=== PATIENT | female | born 1985 | race African-American/Black ===

== ENCOUNTER 2017-04-08 14:51 | Emergency (ER) | payer OTHER ==
[~2017-04-08] VITALS: Ht 167.6 cm; Wt 89.8 kg
[~2017-04-08 14:51] MED LIST: ACETAZOLAMIDE500 M1 PO; AUGMENTIN 875-1 EACH PO; CLONAZEPAM0.5 MG PO; CYCLOBENZAPRINE5 MG PO; GUAIFENESIN-CO118 M1 PO; KLONOPIN0.5 MG PO; LAMICTAL25 MG PO; LAMOTRIGINE25 MG PO; NAPROXEN500 MG PO; NORCO 5-325 TA1 EACH PO; NORTRIPTYLINE H50 MG PO; NYQUIL; PERCOCET 5-3251 EACH PO; TESSALON PERLE100 MG PO
[2017-04-08] MEDS ORDERED: VENTOLIN HFA18 GM (15:18)
[2017-04-08] MEDS ORDERED: VENTOLIN HFA18 GM INH (15:51)
== END 2017-04-08 16:41 | disposition home or self-care (01) ==
LOC: ED 14:51
DX: Z76.0 Encounter for issue of repeat prescription (principal); J45.909 Unspecified asthma, uncomplicated; F41.9 Anxiety disorder, unspecified; I10 Essential (primary) hypertension; F17.200 Nicotine dependence, unspecified, uncomplicated; Z90.49 Acquired absence of other specified parts of digestive tract; Z90.712 Acquired absence of cervix with remaining uterus; Z88.2 Allergy status to sulfonamides; Z88.8 Allergy status to other drugs, medicaments and biological substances
CPT/HCPCS: 94640; 99281

== ENCOUNTER 2017-08-06 13:09 | Emergency (ER) | payer MEDICAID ==
[~2017-08-06] VITALS: Ht 167.6 cm; Wt 190.0 kg
[~2017-08-06 13:09] MED LIST changes: +VENTOLIN HFA18 GM; +VENTOLIN HFA18 GM INH
[2017-08-06] MEDS ORDERED: NAPROSYN500 MG PO (14:18)
[2017-08-06] MEDS ORDERED: CYCLOBENZAPRINE10 MG PO (14:18)
== END 2017-08-06 15:55 | disposition home or self-care (01) ==
LOC: ED 13:09
DX: S70.02XA Contusion of left hip, initial encounter (principal); J45.909 Unspecified asthma, uncomplicated; F17.200 Nicotine dependence, unspecified, uncomplicated; Z88.8 Allergy status to other drugs, medicaments and biological substances; Z88.1 Allergy status to other antibiotic agents; Z79.899 Other long term (current) drug therapy; W01.0XXA Fall on same level from slipping, tripping and stumbling without subsequent striking against object, initial encounter
CPT/HCPCS: 73502; 96372; 99283; J1885

== ENCOUNTER 2019-11-11 19:30 | Emergency (ER) | payer OTHER ==
[~2019-11-11 19:30] MED LIST changes: +CYCLOBENZAPRINE10 MG PO; +NAPROSYN500 MG PO
--- OUTSIDE RECORDS SUMMARY | 2019-11-11 19:32 | XMS ---
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 There are no care providers on record at this time. Suha has no Care Guidelines for this patient. [place] VISIT COUNT (12 MO.) 1 [facility] TOTAL 1 NOTE: Visits indicate total known visits. ED/C VISIT TRACKING (12 MO.) 11/11/2019 19:31 [facility] TYPE: Emergency COMPLAINT: - DENTAL PAIN INPATIENT VISIT TRACKING (12 MO.) No inpatient visits to display in this time frame [email or web address]
== END 2019-11-11 19:35 | disposition left against medical advice (07) ==
LOC: ED 19:30
DX: Z53.21 Procedure and treatment not carried out due to patient leaving prior to being seen by health care provider (principal)

== ENCOUNTER 2021-02-03 21:56 | Emergency (ER) | payer OTHER ==
[~2021-02-03] VITALS: Ht 167.6 cm; Wt 79.9 kg
--- OUTSIDE RECORDS SUMMARY | 2021-02-03 22:04 | XMS ---
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 [place] VISIT COUNT (12 MO.) 1 [facility] 1 [facility] TOTAL 2 NOTE: Visits indicate total known visits. ED/UCC VISIT TRACKING (12 MO.) 02/03/2021 21:56 [facility] TYPE: Emergency COMPLAINT: - RT KNEE INJURY 04/23/2020 18:04 [facility]nee [facility] TYPE: Emergency DIAGNOSES: - Rectal Bleed - ABD Pain - Abdominal Pain - Unspecified abdominal pain - Hemorrhage of anus and rectum - Emesis INPATIENT VISIT TRACKING (12 MO.) No inpatient visits to display in this time frame [email or web address]
== END 2021-02-04 00:16 | disposition home or self-care (01) ==
LOC: ED 21:56
DX: S83.91XA Sprain of unspecified site of right knee, initial encounter (principal); W01.10XA Fall on same level from slipping, tripping and stumbling with subsequent striking against unspecified object, initial encounter; I10 Essential (primary) hypertension; F17.200 Nicotine dependence, unspecified, uncomplicated; Z88.2 Allergy status to sulfonamides; Z88.1 Allergy status to other antibiotic agents; Z88.8 Allergy status to other drugs, medicaments and biological substances
CPT/HCPCS: 73560; 99283-25